=== PATIENT | male | born 1995 ===

== ENCOUNTER 2018-05-28 07:15 | Inpatient (IN) | payer MEDICAID ==
[2018-05-28 08:14] LABS: BASO % 0.5 % (0.0-2.0); EOS # 0.1 K/uL (0.0-0.7); EOS % 0.8 % (0.0-4.0); HEMOGLOBIN 16.4 g/dL (12.0-18.0); LYMPH # 0.9 K/uL (1.0-4.3); LYMPH % 10.8 % (20.0-40.0); MEAN CORPUSCULAR HEMOGLOBIN 29.9 pg (27.0-31.0); MEAN PLATELET VOLUME 7.9 fL (7.2-11.7); MONO # 0.4 K/uL (0.0-0.8); MONO % 5.1 % (0.0-10.0); NEUT # 6.9 K/uL (1.8-7.0); NEUT % 82.8 % (50.0-75.0); NRBC % 0.1 % (0.0-2.0); RBC 5.49 Mil/uL (4.40-5.90); RED CELL DISTRIBUTION WIDTH 13.3 % (11.5-14.5); WHITE BLOOD COUNT 8.4 K/uL (4.8-10.8)
[2018-05-28 08:26] LABS: ALB/GLOB RATIO 1.5 (1.0-2.1); ALBUMIN 5.2 g/dL (3.5-5.0); ALT/SGPT 21 U/L (21-72); AST/SGOT 24 U/L (17-59); BLOOD UREA NITROGEN 11 mg/dL (9-20); CALCIUM 9.9 mg/dl (8.6-10.4); GFR NON-AFRICAN AMERICAN > 60
[2018-05-28 08:27] LABS: URINE BILIRUBIN NEGATIVE (NEGATIVE); URINE BLOOD 1+ (NEGATIVE); URINE CLARITY Clear (Clear); URINE COLOR Yellow (YELLOW); URINE GLUCOSE (UA) NORMAL (Normal); URINE LEUKOCYTE ESTERASE NEG Leu/uL (Negative); URINE PROTEIN NEGATIVE (NEGATIVE); URINE UROBILINOGEN NORMAL mg/dL (0.2-1.0)
[2018-05-28 08:50] LABS: BARBITURATES, UR NEGATIVE (NEGATIVE); BENZODIAZEPINES, UR NEGATIVE (NEGATIVE); OPIATES, UR NEGATIVE (NEGATIVE); PHENCYCLIDINE, UR NEGATIVE (NEGATIVE)
--- NOTE | 2018-05-28 09:06 | C.PDOC ---
History Of Present Illness 22 y/o male, w/PMhx of anxiety and schizophrenia, presents to the ER complaining of feeling anxious. He states he has a history of panic attacks, and is scared he may have another one. Patient denies suicidal or homicidal ideations, hx of substance abuse, or current physical complaints. Time Seen by Provider: 05/28/18 07:20 Chief Complaint (Nursing): Psychiatric Evaluation History Per: Patient History/Exam Limitations: no limitations Current Symptoms Are (Timing): Still Present Severity: Moderate Associated Symptoms: Anxiety Past Medical History Reviewed: Historical Data, Nursing Documentation, Vital Signs Vital Signs: Last Vital Signs Temp 98.2 F 05/28/18 07:18 Pulse 81 05/28/18 07:18 Resp 20 05/28/18 07:18 BP 141/93 H 05/28/18 07:18 Pulse Ox 99 05/28/18 07:18 - Medical History PMH: Anxiety Surgical History: No Surg Hx Family History: States: No Known Family Hx - Social History Hx Alcohol Use: No Hx Substance Use: No - Immunization History Hx Tetanus Toxoid Vaccination: No Hx Influenza Vaccination: No Hx Pneumococcal Vaccination: No Review Of Systems Constitutional: Negative for: Fever, Chills Cardiovascular: Negative for: Chest Pain Respiratory: Negative for: Shortness of Breath Gastrointestinal: Negative for: Nausea, Vomiting, Abdominal Pain Psych: Positive for: Anxiety. Negative for: Suicidal ideation Physical Exam - Physical Exam Appears: Well, Non-toxic, Other (bizarre affect, calm & cooperative) Skin: Normal Color, Warm, Dry, No Rash Head: Atraumatic, Normacephalic Eye(s): bilateral: Normal Inspection Oral Mucosa: Moist Neck: Supple Chest: Symmetrical Cardiovascular: Rhythm Regular Respiratory: Normal Breath Sounds, No Rales, No Rhonchi, No Wheezing Gastrointestinal/Abdominal: Normal Exam, Bowel Sounds, Soft, No Tenderness Extremity: Bilateral: Atraumatic Neurological/Psych: Oriented x3 Gait: Steady ED Course And Treatment - Laboratory Results Result Diagrams: 05/28/18 08:11 05/28/18 08:11 Lab Results: Total Bilirubin 0.7 mg/dL (0.2-1.3) 05/28/18 08:11 AST 24 U/L (17-59) 05/28/18 08:11 ALT 21 U/L (21-72) 05/28/18 08:11 Alkaline Phosphatase 93 U/L (38-126) 05/28/18 08:11 Total Protein 8.6 g/dL (6.3-8.3) H 05/28/18 08:11 Albumin 5.2 g/dL (3.5-5.0) H 05/28/18 08:11 Globulin 3.5 gm/dL (2.2-3.9) 05/28/18 08:11 Albumin/Globulin Ratio 1.5 (1.0-2.1) 05/28/18 08:11 Urine Color Yellow (YELLOW) 05/28/18 08:11 Urine Clarity Clear (Clear) 05/28/18 08:11 Urine pH 6.0 (5.0-8.0) 05/28/18 08:11 Ur Specific [place] 1.009 (1.003-1.030) 05/28/18 08:11 Urine Protein Negative mg/dL (NEGATIVE) 05/28/18 08:11 Urine Glucose (UA) Normal mg/dL (Normal) 05/28/18 08:11 Urine Ketones Negative mg/dL (NEGATIVE) 05/28/18 08:11 Urine Blood 1+ (NEGATIVE) H 05/28/18 08:11 Urine Nitrate Negative (NEGATIVE) 05/28/18 08:11 Urine Bilirubin Negative (NEGATIVE) 05/28/18 08:11 Urine Urobilinogen Normal mg/dL (0.2-1.0) 05/28/18 08:11 Ur Leukocyte Esterase Neg Jhon/uL (Negative) 05/28/18 08:11 Urine WBC (Auto) < 1 /hpf (0-5) 05/28/18 08:11 Urine RBC (Auto) 1 /hpf (0-3) 05/28/18 08:11 O2 Sat by Pulse Oximetry: 99 (RA) Pulse Ox Interpretation: Normal Progress Note: Blood work, UA, UDS ordered and reviewed. 9:00 - Patient medically cleared. Accepted by Dr. Quick for psychiatric admission - schizophrenia. Disposition - Disposition Disposition: HOSPITALIZED Disposition Time: 09:11 Condition: STABLE - Clinical Impression Clinical Impression: Schizophrenia - Scribe Statement The provider has reviewed the documentation as recorded by the Mei Chiu Provider Attestation: All medical record entries made by the Carlosibe were at my direction and personally dictated by me. I have reviewed the chart and agree that the record accurately reflects my personal performance of the history, physical exam, medical decision making, and the department course for this patient. I have also personally directed, reviewed, and agree with the discharge instructions and disposition. Decision To Admit - Pt Status Changed To: Hospital Disposition Of: Inpatient - Admit Certification Admit to Inpatient:: After my assessment, the patient will require hospitalization for at least two midnights. This is because of the severity of symptoms shown, intensity of services needed, and/or the medical risk in this patient being treated as an outpatient. - InPatient: Physician Admission Certification: I certify that this patient requires 2 or more midnights of care for the following reason:: see notes - . Bed Request Type: Psychiatry Admitting Physician: Pavel Quick Patient Diagnosis: Schizophrenia
--- NOTE | 2018-05-28 11:25 | PCM.BM ---
<Елена Bates - Last Filed: 05/28/18 11:21> Treatment Plan Problems - Problems identified on initial assessmt Command/Auditory Hallucinations Date Initiated: 05/28/18 Time Initiated: 11:23 Assessment reference: NA Status: Active Ineffective Coping Date Initiated: 05/28/18 Time Initiated: 11:23 Assessment reference: NA Status: Active Treatment assets and liabiliti Patient Assests: cooperative, ADL independent, physically healthy, negotiates basic needs - Milieu Protocol Maintain good personal hygiene: daily Encourage regular showers, daily Remind patient to perform daily oral care, daily Assist patient to perform ADL's Conduct patient checks and document Observation sheet: Q15 minutes Maintain personal safety: every shift Educate patient to report safety concerns to staff, every shift Monitor environment for contraband/sharps Medication safety: Monitor for expected outcome, potential side effects: every shift, Assess barriers to learning: every shift, Assess readiness for medication education: every shift <Pavel Quick - Last Filed: 05/29/18 11:14> - Diagnosis (1) Schizophrenia Status: Acute Interventions: 05/29/18 11:15 * Assess/adjust medications daily and /or as needed * See patient on an individual basis 7x/week to assess status of hallucinations * Discuss risks, benefits, side effects and alternatives of medications * <Cleopatra Mosqueda - Last Filed: 05/29/18 15:12> Family Contact Family involvement: Family/SO is involved Family contact: Patient agrees to contact - Goals for Treatment Patient goals for treatment: "I want to go back to my doctor in [place], [place]."
[2018-05-28] MEDS ORDERED: Pneumococcal 23-Valent Vaccine IM ONE (13:03)
--- NOTE | 2018-05-28 14:00 | PCM.PSYCH ---
Initial Psychiatric Evaluation - Initial Psychiatric Evaluation Type of Admission: Voluntary Legal Status: Capacity Chief Complaint (in patient's own words): I was hearing voices, so I got concerned.' History of Present Illness and Precipitating Events: Pt is a 22 year old male, who came to the ED because of auditory hallucinations and panic attacks. Patient reports history of schizophrenia for more than 2 years. He has history of few involuntary inpatient psychiatric admissions. Pt is recently discharged from [facility] [place] [facility] on 05/16/18. He appears disorganized and internally preoccupied. He remained superficially cooperative but guarded about the details. He reports that he drove to the hospital as he had a lot of anxiety. He reports that last time he was hearing voices to kill himself, when he was admitted involuntarily. However he denies any suicidal attempt in the past. He appears paranoid and delusional. He reports of auditory hallucinations, hearing voices and seeing objects. He still reports of anxiety and irritability but denies any racing thoughts. He reports of depressed mood but he appears flat. He denies any drinking or any substance abuse. Past medical history None reported Current Medications: Active Medications Generic Name Dose Route Start Last Admin Trade Name Freq PRN Reason Stop Dose Admin Influenza Virus Vaccine 60 mcg 05/30/18 10:00 Flucelvax Quad [id number] Syr IM 05/30/18 10:01 .ONCE ONE Pneumococcal Polyvalent Vaccine 0.5 ml 05/30/18 10:00 Pneumovax 23 Vaccine IM 05/30/18 10:01 .ONCE ONE Past Psychiatric History - Past Psychiatric History Previous Treatment History: Inpatient Pertinent Medical Hx (Current Medical&Sleep Prob, Allergies): Allergies Allergy/AdvReac Type Severity Reaction Status Date / Time No Known Allergies Allergy Verified 05/28/18 07:22 Risperidone [Risperdal] 2 mg PO BID 05/28/18 Review of Systems - Review of Systems All systems: reviewed and no additional remarkable complaints except - Psychiatric Psychiatric: Anxiety, Auditory Hallucinations, Irritability, Panic Attacks, Paranoia Mental Status Examination - Personal Presentation Personal Presentation: Looks stated age - Affect Affect: Constricted - Motor Activity Motor Activity: Psychomotor Retardation - Reliability in Providing Information Reliability in Providing Information: Poor, due to alteration in thoughts, Poor, due to altered mood - Speech Speech: Disorganized - Formal Thought Process Formal Thought Process: Hallucinations, Delusions, Paranoia, Loosening of associations - Hallucinations/Delusions Hallucinations: Visual, Auditory Delusions: Persecution - Obsessions/Compulsions Obsessions: No Compulsions: No - Cognitive Functions Orientation: Person, Place, Situation, Time Sensorium: Alert Attention/Concentration: Attentive Abstract Thinking: [place] Estimate of Intelligence: Below average Judgement: Imparied, as evidence by: Poor judgement, Imparied, as evidence by: Lack of insight into illness - Risk Risk: Suicidal, Diminished functioning - Strength & Assets Inventory Strength & Assets Inventory: Family support DSM 5 DX - DSM 5 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
--- NOTE | 2018-05-30 00:55 | PCM.PYCHPN ---
Psychiatric Progress Note - Psychiatric Progress Note Patient seen today, length of contact: 15 min Patient Chief Complaint: I am still hearing voices. Problems Identified/Issues Discussed: Patient was seen and evaluated, chart reviewed and discussed the staff. As per staff patient remained paranoid and delusional. He still appears disorganized and internally preoccupied and at times he starts responding to internal stimuli. He is pacing back and forth in the hallways and appeared very delusional. However he is taking medication denies any side effects. Supportive therapy was given Medication Change: Yes Medical Record Reviewed: Yes Mental Status Examination - Cognitive Function Orientation: Person, Place, Situation, Time Memory: Intact Attention: Poor Concentration: Poor Association: Loose Fund of Knowledge: Poor - Mood Mood: Anxious - Affect Affect: Flat - Speech Speech: Pressured - Formal Thought Process Formal Thought Process: Hallucinations, Delusions, Paranoia, Loosening of associations - Suicidal Ideation Suicidal Ideation: No - Homicidal Ideation Homicidal Ideation: No Goal/Treatment Plan - Goal/Treatment Plan Need for Continued Stay: Remain at risks for inpatient hospitalization Progress Toward Problem(s) and Goals/Treatment Plan: Schizophrenia paranoid type continues -CBT -Psychoeducation -Supportive therapy and group therapy -Hydroxyzine for Anxiety -Risperdal for psychosis -Trileptal for mood -Klonopin for anxiety -Ativan as needed - Smoking Cessation Smoking Cessation Initiated: No
[2018-05-30] MEDS ORDERED: Influenza Vaccine 60 mcg/0.5 mL SYR (4YR UP) IM ONE (10:00)
[2018-05-30] MEDS ORDERED: Pneumococcal 23-Valent Vaccine IM ONE (10:00)
--- NOTE | 2018-06-01 23:03 | PCM.PYCHPN ---
Psychiatric Progress Note - Psychiatric Progress Note Patient seen today, length of contact: 15 min Patient Chief Complaint: I am feeling better than before. Problems Identified/Issues Discussed: Patient seen, chart reviewed, case discussed with the staff. Issues related to illness and treatment were discussed with the patient and staff. Reported compliant with treatment with no adverse effects. Tolerating treatment very well. Mood reported as anxious. Affect appropriate. Patient reported feeling little better. Still pacing in the hallways but less than before. Needs more time for stabilization. Aftercare discussed with the patient. Patient denied any delusions, auditory or visual hallucinations, no suicidal ideations or homicidal ideations at the time of evaluation Medical Problems: None reported Diagnostic Results: Reviewed DSM 5 Symptoms Update: Some improvement with treatment. Medication Change: No Medical Record Reviewed: Yes Mental Status Examination - Cognitive Function Orientation: Person, Place, Situation, Time Memory: Intact Attention: WNL Concentration: WNL Association: WNL Fund of Knowledge: WN Decription of patient's judgement and insights: Fair - Mood Mood: Anxious - Affect Affect: Flat - Speech Speech: Soft - Formal Thought Process Formal Thought Process: Loosening of associations - Suicidal Ideation Suicidal Ideation: No - Homicidal Ideation Homicidal Ideation: No Goal/Treatment Plan - Goal/Treatment Plan Need for Continued Stay: Remain at risks for inpatient hospitalization, Discharge may exacerbated symptoms, Severe functional impairment Progress Toward Problem(s) and Goals/Treatment Plan: Patient education. Supportive therapy. Continue treatment as before. Estimated Date of D/C: 06/05/18 - Smoking Cessation Smoking Cessation Initiated: No
[2018-06-03 06:48] VITALS: BP 107/69; PULSE 60; RESP 20; TEMP 97.6; O2SAT 97
--- NOTE | 2018-06-03 10:25 | PCM.PYCHDC ---
Mental Status Examination - Mental Status Examination Orientation: Person, Place, Situation, Time Memory: Intact Mood: Neutral Affect: Constricted Speech: Soft Attention: WNL Concentration: WNL Association: WNL Fund of Knowledge: WNL Formal Thought Process: No Impairment Description of patient's judgement and insight: Good, fair Psychotic Thoughts and Behaviors: denies any AVH Suicidal Ideation: No Current Homicidal Ideation?: No Discharge Summary - Discharge Note Reason for Hospitalization: Pt is a 22 year old male, who came to the ED because of auditory hallucinations and panic attacks. Patient reports history of schizophrenia for more than 2 years. He has history of few involuntary inpatient psychiatric admissions. Pt is recently discharged from [facility] on 05/16/18. He appears disorganized and internally preoccupied. He remained superficially cooperative but guarded about the details. He reports t hat he drove to the hospital as he had a lot of anxiety. He reports that last time he was hearing voices to kill himself, when he was admitted involuntarily. However he denies any suicidal attempt in the past. He appears paranoid and delusional. He reports of auditory hallucinations, hearing voices and seeing objects. He still reports of anxiety and irritability but denies any racing thoughts. He reports of depressed mood but he appears flat. He denies any drinking or any substance abuse. Consultations:: List each consultation separately and include: 1. Reason for request. 2. Findings. 3. Follow-up Summary of Hospital Course include:: 1. Description of specific treatment plan utilized for patients during their course of treatmen. 2. Summarize the time- course for resolution of acute symptoms and/or regressed behaviors. 3. Describe issues identified and worked on during hospitalization. 4. Describe medication utilized. 5. Describe medical problems identified and treated. 6. Reassessment of suicide risk Summary of Hospital Course: Pt is a 22 year old male, who came to the ED because of auditory hallucinations and panic attacks. Patient reports history of schizophrenia for more than 2 years. He has history of few involuntary inpatient psychiatric admissions. Pt is recently discharged from [facility] on 05/16/18. He appears disorganized and internally preoccupied. He remained superficially cooperative but guarded about the details. He reports that he drove to the hospital as he had a lot of anxiety. He reports that last time he was hearing voices to kill himself, when he was admitted involuntarily. However he denies any suicidal attempt in the past. He appears paranoid and del usional. He reports of auditory hallucinations, hearing voices and seeing objects. He still reports of anxiety and irritability but denies any racing thoughts. He reports of depressed mood but he appears flat. He denies any drinking or any substance abuse. Past medical history None reported - Diagnosis (1) Schizophrenia Current Visit: Yes Status: Acute - Final Diagnosis (DSM 5) Condition upon Discharge: STABLE DSM 5: Schizophrenia paranoid type continues Disposition: HOME/ ROUTINE Follow-up Treatment Plan: Schizophrenia paranoid type continues -CBT -Psychoeducation -Supportive therapy and group therapy -Hydroxyzine for Anxiety -Risperdal for psychosis -Trileptal for mood -Klonopin for anxiety -Ativan as needed Prescriptions/Medication Reconciliation: Benztropine [Cogentin] 1 mg PO BID #60 tab OXcarbazepine [Trileptal] 150 mg PO BID #60 tab Risperidone [Risperdal] 2 mg PO BID #60 tablet - Smoking Cessation Smoking Cessation Medication prescribed: No - Antipsychotic Medications Pt discharged on 2 or more routine antipsychotic medications: No
== END 2018-06-03 12:17 | disposition home or self-care (01) | DRG 750 ==
LOC: C.ER 07:15 → C.9E 09:11 → C.5E 09:51
PROVIDERS: ADMIT Psychiatry & Neurology Psychiatry; ATTEND Psychiatry & Neurology Psychiatry
PROC: GZHZZZZ Group Psychotherapy (ICD-10-PCS; principal; 2018-05-28)
PROC: GZ58ZZZ Individual Psychotherapy, Cognitive-Behavioral (ICD-10-PCS; 2018-05-28)
PROC: GZ56ZZZ Individual Psychotherapy, Supportive (ICD-10-PCS; 2018-05-28)
DX: F20.0 Paranoid schizophrenia (principal); F41.0 Panic disorder [episodic paroxysmal anxiety]